=== PATIENT | male | born 1955 | race Asian ===

== ENCOUNTER 2022-07-04 05:15 | Day surgery (SDC) | payer BC ==
[~2022-07-04] VITALS: Ht 160 cm; Wt 72.6 kg
[2022-07-04] MEDS ORDERED: INDOMETHACIN 50 MG SUPP.RECT RC ONE (07:30)
[2022-07-04] MEDS ORDERED: SIMETHICONE 40 MG/0.6 ML ML ONE (07:35)
[2022-07-04] MEDS ORDERED: fentaNYL CITRATE/PF 100 MCG/2 ML AMP IVP ONE (07:50)
[2022-07-04] MEDS ORDERED: SUCCINYLCHOLINE CHLORIDE 20 MG/ML(QUELICIN) IVP ONE (07:50)
[2022-07-04] MEDS ORDERED: NS 1000 ML IV.SOLN IV ONE (07:50)
[2022-07-04] MEDS ORDERED: ROCURONIUM BROMIDE 10 MG/ML (ZEMURON) IV ONE (07:50)
[2022-07-04] MEDS ORDERED: SEVOFLURANE 15 MIN GAS INH ONE (07:50)
[2022-07-04] MEDS ORDERED: LR 1,000 ML IV.SOLN IV ONE (07:50)
[2022-07-04] MEDS ORDERED: IOHEXOL 300 mgI/mL, 50 mL INFUS..BTL IV ONE (07:50)
[2022-07-04] MEDS ORDERED: PROPOFOL 200MG/ 20ML VIAL (DIPRIVAN) IV ONE (07:50)
[2022-07-04] MEDS ORDERED: HYDROmorphone 1 MG/ML INJ. CARTRIDGE IVP PRN (08:45)
[2022-07-04] MEDS ORDERED: METOCLOPRAMIDE HCL 10 MG/2 ML VIAL IVP PRN (08:45)
[2022-07-04] MEDS ORDERED: MEPERIDINE HCL/PF 25 MG/ML DISP.SYRIN IVP PRN (08:45)
[2022-07-04] MEDS ORDERED: LR 1,000 ML IV SCH (08:45)
[2022-07-04] MEDS ORDERED: ONDANSETRON HCL 4 MG/2 ML VIAL IVP PRN (08:45)
[2022-07-04 15:00] VITALS: BP_SYST 114
== END 2022-07-04 12:00 | disposition home or self-care (01) ==
LOC: SMU 05:15 → SDS 05:15
PROVIDERS: ATTEND Internal Medicine Gastroenterology
DX: K83.1 Obstruction of bile duct (principal); I10 Essential (primary) hypertension; E11.9 Type 2 diabetes mellitus without complications; E78.00 Pure hypercholesterolemia, unspecified; Z20.822 Contact with and (suspected) exposure to COVID-19; Z79.899 Other long term (current) drug therapy
CPT/HCPCS: 36415; 43274; 43264; 82962; 74328; U0003; G0378; J2704; J0330; J3010; Q9967; J7120; J7030; 76000